=== PATIENT | male | born 1955 | race Hispanic/Latino ===

== ENCOUNTER 2016-07-08 15:42 | Inpatient (IN) ==
[2016-07-08 16:00] LABS: MANUAL DIFF NEEDED? NO
[2016-07-08 16:12] LABS: BASO% 0.7 % (0.0-0.8); EOS# 0.07 X1000 (0.0-0.7); HEMATOCRIT 42.7 % (42.0-52.0); HEMOGLOBIN 15.5 g/dL (14.0-18.0); LYMPH# 1.71 X1000 (1.2-3.4); LYMPH% 23.8 % (20.5-51.1); MCH 31.6 PG (27-31); MCHC 36.3 g/dL (33-37); MONO# 0.57 X1000 (0.11-0.59); MONO% 7.9 % (1.7-9.3); MPV 10.3 FL (7.4-10.4); NEUT% 66.6 % (42.2-75.2); PLT 157 X1000 (130-400); RBC 4.91 XMIL (4.7-6.1)
[2016-07-08 16:14] LABS: INR 1.09; PROTIME 11.5 Seconds (9.2-11.7); PTT 28.6 Seconds (22.0-36.0)
[2016-07-08 16:22] LABS: AGAP 15; ALBUMIN 4.1 g/dL (3.5-5.0); ALKALINE PHOSPHATASE 66 U/L (32-122); BUN 18 mg/dL (8-22); CHLORIDE 101 mmol/L (98-107); CK PROFILE 93 U/L (24-204); COSMO 285; GOT 18 U/L (10-34); GPT 17 U/L (10-44); POTASSIUM 3.7 mmol/L (3.5-5.1); SODIUM 138 mmol/L (136-145); TCO2 22 mmol/L (25-35); TOTAL BILIRUBIN 0.91 mg/dL (0.20-1.00); TOTAL PROTEIN 7.7 g/dL (6.3-8.3)
--- NOTE | 2016-07-08 16:24 | Diag Imaging Result Document ---
PROCEDURE NAME: CHEST-PORTABLE - 07/08/2016 PORTABLE CHEST X-RAY: COMPARISON: 06/23/2012. FINDINGS: There is suggestion of a right apical nodule or infiltrate. Heart size is normal. No pneumothorax or pleural effusion. IMPRESSION: Right apical pulmonary nodule or infiltrate, nonspecific. Followup recommended.
--- NOTE | 2016-07-08 16:25 | Diag Imaging Result Document ---
PROCEDURE NAME: HEAD W/O CONTRAST - 07/08/[address]: A CT dose reduction protocol was used. COMPARISON: 06/23/2012. FINDINGS: Stable left globe prosthesis. Stable small old lacunar infarction in the right caudate head. There is a new lacunar infarction in the left thalamus, which does have an old appearance. No intracranial mass or hemorrhage. The skull is intact. The sinuses, mastoids , and middle ears are clear. IMPRESSION: No acute disease. [facility]
[2016-07-08 17:37] LABS: URINE CULTURE NEEDED? NO; URINE MICRO REVIEW NEEDED? NO; URINE SOURCE CLEAN CATCH
[2016-07-08 17:50] LABS: BILIRUBIN URINE NEGATIVE (NEGATIVE); BLOOD URINE NEGATIVE (NEGATIVE); COLOR YELLOW; GLUCOSE URINE >1000 mg/dL (NEGATIVE); LEUKOCYTES URINE NEGATIVE (NEGATIVE); NITRITE URINE NEGATIVE (NEGATIVE); PH URINE 5.5; PROTEIN URINE NEGATIVE (NEGATIVE); SP GRAVITY URINE 1.036; TURBIDITY URINE CLEAR (CLEAR); UROBILINOGEN URINE NORMAL (NORMAL)
[2016-07-08 17:51] LABS: UR EPITHELIAL CELLS <10 /HPF (<10); URINE BACTERIA NEGATIVE /HPF; URINE RBC <10 /HPF (<10); URINE WBC <10 /HPF (<10)
--- NOTE | 2016-07-08 17:58 | PROVIDER DOCUMENTATION ---
This chart was entered by Mary Nava Scribe, acting as scribe for Sara Gimenez Jr, MD. HPI-Neurological Disorder - General Chief Complaint: Stroke-Like Symptoms Stated Complaint: STROKE LIKE SX Time Seen by Provider: 07/08/16 16:00 Source: patient Allergies/Adverse Reactions: Patient Allergies Allergy/AdvReac Type Severity Reaction Status Date / Time celecoxib [From Celebrex] Allergy Mild WATERY EYES Verified 06/01/16 09:43 Home Medications: Home Medication List Medication Instructions Recorded Confirmed Last Taken Type Atorvastatin Calcium 20 mg PO DAILY 08/04/12 07/08/16 07/08/16 08:00 History Clopidogrel [Plavix] 75 mg PO DAILY 08/04/12 07/08/16 07/08/16 08:00 History Canagliflozin [Invokana] 300 mg PO DAILY 04/18/16 07/08/16 07/08/16 08:00 History Hydrocodone/APAP 7.5 mg/325 mg 1 each PO Q6H PRN PRN #12 tablet 04/18/1606/02/16 Rx [[place]-7.5] Dulaglutide [Trulicity] 1.5 mg SQ Q7D 06/01/16 07/08/16 05/31/16 History Folic Acid 1 mg PO DAILY 06/01/16 07/08/16 07/08/16 08:00 History LISINOpril [Prinivil] 10 mg PO DAILY 06/01/16 07/08/16 07/08/16 08:00 History Tizanidine [Zanaflex] 4 mg PO Q8HR 06/01/16 07/08/16 06/02/16 History Tramadol [Ultram] 50 mg PO Q6H PRN PRN 06/01/16 07/08/16 2 Months Ago History Zolpidem [Ambien] 10 mg PO QHS 06/01/16 07/08/16 07/07/16 21:00 History Oxycodone HCl/Acetaminophen 1 - 2 each PO Q4H PRN PRN #60 06/03/16 07/08/1612/15 11:00 Rx [Percocet 5-325 mg Tablet] tablet - History of Present Illness-Neuro Nature of Presenting Problem: Pt is a 61 yom who came to the ED with a cc of stroke-like symptoms. Pt reports that he was walking out to get the mail around 1:30 and noticed that his balance was off. Pt reports when he went to call for the dogs that his speech was also slurred. Pt was worried about a stroke because he has a hx of TIA's. Severity: reports: mild Onset/Duration: reports: 1-3 hours ago Timing: reports: still present Context: reports: impaired speech Character of Altered Mental Status: reports: N/A Character of Deficits: reports: impaired speech Cognitive Baseline: alert, oriented x3 Associated Symptoms: reports: slurred speech, trouble walking Similar Symptoms Previously?: Yes Recently seen or treated by another doctor?: No Review of Systems - Adult - REVIEW OF SYSTEMS - ADULT Constitutional: denies: chills, fever Eyes: denies: decreased vision, blurred vision Cardiovascular: denies: chest pain, poor circulation Musculoskeletal: reports: other (trouble walking). denies: frequent leg cramps , joint swelling Neurological: reports: slurred speech. denies: loss of balance, paresthesia Past History - Adult - PAST MEDICAL HISTORY-ADULT Review of Records: reports: Nursing Assessment Review Major Childhood Illnesses: reports: denies history Cardiovascular: reports: HTN Respiratory: reports: denies history Gastrointestinal: reports: denies history Obstetrical/Gynecological: reports: denies history Genitourinary: reports: denies history Musculoskeletal: reports: denies history Neurological: reports: CVA Endocrine/Immune: reports: Diabetes Other Conditions: reports: denies history - PRIOR SURGERIES/PROCEDURES Surgical/Procedure History: reports: none - IMMUNIZATION STATUS Childhood Immunizations: See Nurse Assessment Flu Vaccine: See Nurse Assessment - FAMILY HISTORY Family History: reviewed, not pertinent Physical Exam- Neurological - Physical Exam-Neuro Initial Vital Signs Reviewed: Yes General Appearance: appears well, alert, no apparent distress Eye Exam: right eye: normal inspection, PERRL, EOMI, left eye: other (left eye prosthese) HENMT: normocephalic/atraumatic, moist mucous membranes Neck: non-tender, full range of motion Respiratory: chest non-tender, lungs clear Cardiovascular: normal peripheral pulses, regular rate, rhythm Abdominal Exam: normal bowel sounds, non tender Extremity: normal range of motion, 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 Exam: normal hearing, PERRL, abnormal speech Coordination/Gait: normal finger to nose, abnormal gait Neurologic: grossly normal Integumentary: normal color, normal turgor, warm/dry Psych/Mental Status: normal mood/affect, oriented x 3 - Glascow Coma Scale Best Eye Response: (4) open spontaneously Best Verbal Response: (5) oriented Best Motor Response: (6) obeys commands Total Glascow Score: 15 Progress - PLAN OF CARE/RESULTS Progress/Plan/Lab Results: Vital Signs - 8 hr 07/08/16 15:46 07/08/16 16:55 Temperature 97.9 F Pulse Rate 73 75 Respiratory Rate 18 19 Blood Pressure 176/91 160/95 O2 Sat by Pulse Oximetry 99 97 Laboratory Results - last 24 hr 07/08/16 07/08/16 07/08/16 15:50 15:50 15:50 WBC 7.19 RBC 4.91 Hgb 15.5 Hct 42.7 MCV 87.0 MCH 31.6 H MCHC 36.3 RDW Std Deviation 13.2 Plt Count 157 MPV 10.3 Immature Gran % (Auto) 0.0 Neut % (Auto) 66.6 Lymph % (Auto) 23.8 [place] % (Auto) 7.9 Eos % (Auto) 1.0 Baso % (Auto) 0.7 Immature Gran # (Auto) 0.00 Neut # (Auto) 4.79 Lymph # (Auto) 1.71 [place] # (Auto) 0.57 Eos # (Auto) 0.07 Baso # (Auto) 0.05 PT INR PTT (Actin FS) Sodium 138 Potassium 3.7 Chloride 101 Carbon Dioxide 22 L Anion Gap 15 BUN 18 Creatinine 1.0 Estimated GFR/1.73 m2 > 60 BUN/Creatinine Ratio 18 Glucose 233 H Calculated Osmolality 285 Calcium 9.0 Total Bilirubin 0.91 AST 18 ALT 17 Alkaline Phosphatase 66 Creatine Kinase 93 Troponin T Total Protein 7.7 Albumin 4.1 Globulin 3.6 Albumin/Globulin Ratio 1.1 Plasma Lactate Urine Source Urine Color Urine Turbidity Urine pH Ur Specific [place] Urine Protein Ur Glucose (Stick) Ur Ketones (Stick) Urine Blood Urine Nitrite Urine Bilirubin Urobilinogen Dipstick Urine Leukocytes Urine WBC (Auto) Urine RBC (Auto) U Epithel Cells (Auto) Urine Bacteria (Auto) Plasma/Serum Ethyl Alc 07/08/16 07/08/16 07/08/16 15:50 15:50 16:39 WBC RBC Hgb Hct MCV MCH MCHC RDW Std Deviation Plt Count MPV Immature Gran % (Auto) Neut % (Auto) Lymph % (Auto) [place] % (Auto) Eos % (Auto) Baso % (Auto) Immature Gran # (Auto) Neut # (Auto) Lymph # (Auto) [place] # (Auto) Eos # (Auto) Baso # (Auto) PT 11.5 INR 1.09 PTT (Actin FS) 28.6 Sodium Potassium Chloride Carbon Dioxide Anion Gap BUN Creatinine Estimated GFR/1.73 m2 BUN/Creatinine Ratio Glucose Calculated Osmolality Calcium Total Bilirubin AST ALT Alkaline Phosphatase Creatine Kinase Troponin T < 0.010 Total Protein Albumin Globulin Albumin/Globulin Ratio Plasma Lactate 2.7 H Urine Source Urine Color Urine Turbidity Urine pH Ur Specific [place] Urine Protein Ur Glucose (Stick) Ur Ketones (Stick) Urine Blood Urine Nitrite Urine Bilirubin Urobilinogen Dipstick Urine Leukocytes Urine WBC (Auto) Urine RBC (Auto) U Epithel Cells (Auto) Urine Bacteria (Auto) Plasma/Serum Ethyl Alc 07/08/16 17:30 WBC RBC Hgb Hct MCV MCH MCHC RDW Std Deviation Plt Count MPV Immature Gran % (Auto) Neut % (Auto) Lymph % (Auto) [place] % (Auto) Eos % (Auto) Baso % (Auto) Immature Gran # (Auto) Neut # (Auto) Lymph # (Auto) [place] # (Auto) Eos # (Auto) Baso # (Auto) PT INR PTT (Actin FS) Sodium Potassium Chloride Carbon Dioxide Anion Gap BUN Creatinine Estimated GFR/1.73 m2 BUN/Creatinine Ratio Glucose Calculated Osmolality Calcium Total Bilirubin AST ALT Alkaline Phosphatase Creatine Kinase Troponin T Total Protein Albumin Globulin Albumin/Globulin Ratio Plasma Lactate Urine Source CLEAN CATCH Urine Color YELLOW Urine Turbidity CLEAR Urine pH 5.5 Ur Specific [place] 1.036 Urine Protein NEGATIVE Ur Glucose (Stick) >1000 A Ur Ketones (Stick) NEGATIVE Urine Blood NEGATIVE Urine Nitrite NEGATIVE Urine Bilirubin NEGATIVE Urobilinogen Dipstick NORMAL Urine Leukocytes NEGATIVE Urine WBC (Auto) <10 Urine RBC (Auto) <10 U Epithel Cells (Auto) <10 Urine Bacteria (Auto) NEGATIVE Plasma/Serum Ethyl Alc Orders Category Date Time Status Cardiac Monitoring DIRECTED Care 07/08/16 15:50 Active Finger Stick Blood Sugar (ED) DIRECTED Care 07/08/16 15:50 Active Oxygen Therapy- ED Nursing DIRECTED Care 07/08/16 15:50 Active Saline Loc NOW Care 07/08/16 15:50 Active CHEST-PORTABLE [RAD] Stat Exams 07/08/16 15:50 Completed HEAD W/O CONTRAST [CT] Stat Exams 07/08/16 15:50 Completed ALCOHOL BLOOD Stat Lab 07/08/16 15:50 Completed CBC WITH ELECTRONIC DIFF [HEME] Stat Lab 07/08/16 15:50 Completed CK PROFILE [SP CHEM] Stat Lab 07/08/16 15:50 Completed COMPREHENSIVE METABOLIC PANEL [CHEM] Stat Lab 07/08/16 15:50 Completed LACTATE, PLASMA [CHEM] Stat Lab 07/08/16 16:39 Completed PROTIME WITH INR [COAG] Stat Lab 07/08/16 15:50 Completed PTT [COAG] Stat Lab 07/08/16 15:50 Completed TROPONIN T Stat Lab 07/08/16 15:50 Completed URINALYSIS W/POSS RFLX CULT-1 [URINALYSIS] Stat Lab 07/08/16 17:30 Completed URINE DRUG SCREEN Stat Lab 07/08/16 17:47 Ordered Pulse Oximetry Stat Oth 07/08/16 15:50 Active EKG [EKG] Stat Ther 07/08/16 15:50 Ordered Result Diagrams: 07/08/16 15:50 07/08/16 15:50 - EKG 1 Time of EKG reading by physician:: 16:18 EKG Read and Signed by:: Sara Gimenez Jr EKG Interpretation (*Must complete 3 of following elements*): Normal Rate: 71 Rhythm: sinus rhythm with 1st degree AV block - XRAY 1 XRAY Study: Chest Impression: Abnormal (Right Apical Pulmonary Nodule or inflitrate) - CT/MRI 1 MRI Study: Head Impression: Normal (no acute abnormality) - CONSULTS/PCP/HOSPITALIST Notification #1 *Consult/PCP/Hospitalist*: Dr. Carrasco Time Discussed: 17:52 Consult Disposition: Admit Departure - Departure Time of Disposition Decision: 17:56 DIAGNOSIS: TIA (transient ischemic attack) Qualifiers: Transient cerebral ischemia type: unspecified Qualified Code(s): G45.9 - Transient cerebral ischemic attack, unspecified Disposition: ADMITTED INPATIENT 09 Certified Medical Emergency: Emergent Condition: Good Referrals and Follow-Ups: Armando Monroe [Primary Care Provider] - - Critical Care Note This patient required my direct & personal management of CC.: No - NIH Stroke Scale Level of Consciousness: 0-Alert LOC Questions (ask month and age): 0-Answers Both Correctly LOC Commands (ask to open & close eyes;make a fist, let go): 0-Obeys Both Correctly Best Gaze (horizontal eye movement): 1-Partial Gaze Palsy (gaze is abnormal in one or both eyes) Visual (use finger movement, counting or visual threat): 0-No Visual Loss Facial Palsy (show teeth or raise eyebrows & close eyes tght: 0-Symmetrical Movement Motor Function-left arm: 0-Normal Motor Function-right arm: 0-Untestable Motor Function-left le-Normal Motor Function-right le-Normal Limb Ataxia(mcooqx-[id number], or heel to matias): 0-No Ataxia Sensory(pin prick to face,arms,trunk,legs-compare side/side): 0-No Ataxia Best Language(name item/read sentence.Ex-Down to Earth): 0-No Aphasia Dysarthria(Pt read words or say words Ex.Mama,Tip-Top,Thanks: 0-Normal Articulation Extinction and Inattention: 1-Partial Neglect NIH Total Score: 1 NIH Scale Untestable Comment: right rotator cuff surgery, in immobilizer. Modified [place] Score Criteria: 1-no significant disability despite symptoms This chart was documented by the indicated scribe, (Mary Nava Scribe) and accurately reflects the services I performed and decisions made by me, Sara Gimenez Jr, MD, as attested by the provider's signature.
[2016-07-08 18:10] LABS: UR AMPHETAMINES QUAL NONE DETECTED (NONE DETECT); UR BARBITUATES QUAL NONE DETECTED (NONE DETECT); UR BENZODIAZEPIN QUAL NONE DETECTED (NONE DETECT); UR CANNABINOIDS QUAL NONE DETECTED (NONE DETECT); UR COCAINE QUAL NONE DETECTED (NONE DETECT); UR METHADONE QUAL NONE DETECTED (NONE DETECT); UR OPIATES QUAL NONE DETECTED (NONE DETECT); UR OXYCODONE QUAL PRESUMPTIVE POSITIVE (NONE DETECT); UR PCP QUAL NONE DETECTED (NONE DETECT)
[2016-07-08 19:04] LABS: HEMOGLOBIN A1C 6.3 % (4.8-6.0)
[2016-07-08] MEDS ORDERED: NON-FORMULARY MED (Dulaglutide [Trulicity] 1.5 MG) SQ SCH (19:11)
[2016-07-08] MEDS ORDERED: ASPIRIN PO ONE (19:11)
[2016-07-08 19:28] LABS: HDL 25 mg/dL (35-55); TRIGLYCERIDES 435 mg/dL (39-160)
[2016-07-08] MEDS: AMBIEN PO SCH (21:43)
[2016-07-08] MEDS: LOVENOX SUBQ SCH (21:44)
[2016-07-08] MEDS: PERCOCET-5 PO PRN (21:44)
[2016-07-08] MEDS: ZANAFLEX PO SCH (21:44)
[2016-07-08] MEDS: HUMALOG SUBQ SCH (21:45)
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
[2016-07-09] MEDS: ZANAFLEX PO SCH ×3 (06:21→20:26)
[2016-07-09] MEDS: PRILOSEC PO SCH (06:21)
[2016-07-09] MEDS: INVOKANA PO SCH (06:21)
[2016-07-09] MEDS: HUMALOG SUBQ SCH ×3 (06:34→20:34)
[2016-07-09 07:20] LABS: MANUAL DIFF NEEDED? NO
[2016-07-09 07:24] LABS: BASO% 0.5 % (0.0-0.8); EOS% 1.6 % (0.0-10.0); HEMATOCRIT 40.5 % (42.0-52.0); HEMOGLOBIN 14.4 g/dL (14.0-18.0); LYMPH# 1.96 X1000 (1.2-3.4); LYMPH% 31.4 % (20.5-51.1); MCHC 35.6 g/dL (33-37); MCV 87.3 FL (81-99); MONO# 0.61 X1000 (0.11-0.59); MONO% 9.8 % (1.7-9.3); MPV 10.5 FL (7.4-10.4); NEUT% 56.7 % (42.2-75.2); PLT 146 X1000 (130-400); RBC 4.64 XMIL (4.7-6.1)
[2016-07-09 07:50] LABS: AGAP 9; BUN 15 mg/dL (8-22); CALCIUM 8.8 mg/dL (8.8-10.2); CHLORIDE 104 mmol/L (98-107); COSMO 276; POTASSIUM 3.6 mmol/L (3.5-5.1); SODIUM 137 mmol/L (136-145); TCO2 24 mmol/L (25-35)
[2016-07-09] MEDS ORDERED: LIPITOR PO SCH (09:00)
[2016-07-09] MEDS ORDERED: PRINIVIL PO SCH (09:00)
--- NOTE | 2016-07-09 09:26 | Diag Imaging Result Document ---
PROCEDURE NAME: MRI BRAIN W W/O CONTRAST - 07/09/2016 MRI OF THE BRAIN WITH AND WITHOUT GADOLINIUM: FINDINGS: There is no evidence of mass effect or abnormal gadolinium enhancement. There is increased T2-weighted signal intensity in the periventricular white matter, particularly adjacent to the frontal horn on the right with a few scattered punctate areas of hyperintensity most notably in the posterior left external capsule. There are some old lacunae present in the right caudate nucleus in the lateral putamen on the right and in the left thalamus. There is no evidence of restricted diffusion, bleed, or abnormal extra-axial fluid collection. IMPRESSION: Chronic microvascular changes. No evidence of acute disease.
--- NOTE | 2016-07-09 09:31 | Diag Imaging Result Document ---
PROCEDURE NAME: MRA BRAIN W/O CONTRAST - 07/08/2016 MRA OF THE BRAIN: FINDINGS: There is no evidence of aneurysm or major branch occlusion. The right vertebral artery is not well demonstrated. The basilar artery appears to derive most of its flow from the left side. There is suboptimal visualization of the distal branches of the posterior and middle cerebral arteries. IMPRESSION: No gross abnormality.
--- NOTE | 2016-07-09 09:32 | Diag Imaging Result Document ---
PROCEDURE NAME: MRA NECK W/CONT - 07/08/2016 MRA OF THE NECK: The right vertebral artery is much smaller than the left. There are multiple areas of narrowing seen in the right vertebral artery. The distal portion of the vessel between the C1 level and its confluence with the left vertebral is not demonstrated. This may be due to technical factors, however, the possibility of an atherosclerotic occlusion cannot be excluded. Both internal carotid arteries are markedly tortuous at the level of the mandibular condyles with hairpin curves. Otherwise, there is no apparent narrowing in either internal carotid artery. The common carotid arteries are normal in appearance. The portions of the subclavian arteries which are included on the study appear to be patent. The brachiocephalic on the right is normal in appearance. IMPRESSION: Possibility of atheromatous disease and stenosis in the right vertebral artery cannot be excluded. Marked tortuosity in the mid internal carotid arteries bilaterally.
[2016-07-09] MEDS: PERCOCET-5 PO PRN ×3 (09:55→20:26)
[2016-07-09] MEDS: ASPIRIN PO SCH (09:55)
[2016-07-09] MEDS: PLAVIX PO SCH (09:55)
[2016-07-09] MEDS: FOLIC ACID PO SCH (09:55)
--- NOTE | 2016-07-09 15:09 | CONSULTATION ---
DATE OF CONSULTATION: 07/09/2016 PATIENT LOCATION: Room [address]. HISTORY OF PRESENT ILLNESS: Mr. Barakat is 61 years old and there is question of stroke. History from the patient, attentive , review of records in the computer is that he did not feel well 2 days ago without anything specific. The next day, yesterday, he woke with significant mostly right-sided headache and he may have noticed a little bit of clumsiness with gait. He rested through the morning and in the early afternoon when he went to the mailbox, he noted significant unsteady gait. He did not fall. He noticed that he had a tendency to veer to the left or that his left leg seemed clumsy but he did not fall. Speech was slurred. He rested for a few more hours and was not improved. He presented to the hospital and was admitted. He reports symptoms seem a little bit worse today. Headache is improved today. He reports a past history of stroke causing right-sided weakness which resolved over a period of a few weeks to a month about 4 years ago. He has past history of hypertension, dyslipidemia, diabetes mellitus, rheumatoid arthritis. He had recent right shoulder rotator cuff repair. His home medicines include hydrocodone, oxycodone, tramadol and his urine drug screen was positive for oxycodone and negative for all other. His blood sugar was 233 initially, 120s last check. Vital signs record shows systolic blood pressure is 150s to 170s, heart rate 60s to 70s, afebrile. Initial noncontrast CT of the head showed bilateral basal ganglia lacunes. Brain MRI today with and without contrast shows usual white matter changes with old bilateral basal ganglia lacunes. Cervical MRA is unremarkable. Brain MRA shows some tortuous vessels but no definite findings. Prior to his shoulder surgery, he was taking aspirin and clopidogrel together but he stopped aspirin and resumed clopidogrel after shoulder surgery. While he was taking both of those drugs, he did not have excessive bruising or any other bleeding problems. PHYSICAL EXAMINATION: On exam now, Mr. Barakat is awake, alert, attentive, and appropriate. His voice seems a little bit weak, feeble, not significantly dysarthric. Language function is intact. Memory is good. Head and neck are unremarkable. Visual nugent are full, tested by confrontational finger counting. Left prosthetic globe is noted. There is some asymmetry around the orbits which he and report is chronic, not changed recently. There is not audi ptosis. He has equal forehead wrinkling bilaterally. The left nasolabial fold is a little bit less prominent than the right but motility is good bilaterally. Gag is intact. Tongue is midline. Palate elevates at the midline. He reports equal pinprick and light touch appreciation over the face. He has good lateral and vertical right eye movement. He has good power in the right leg. I did not test power vigorously in the right arm proximally. 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 He did rapid alternating movements well with the right hand. On the left, I can overcome the iliopsoas grading 4+/5. He did well with left hand [id number] testing. He reports diminished pinprick appreciation over the left leg and trunk, extending to approximately T4 level consistently. He has good pinprick appreciation over the left shoulder , hand, and arm. Proprioception is good at the left great toe MTP joint. I did not test his gait. He did well with [id number] testing bilaterally. He did well with left hand finger-to- nose testing. IMPRESSIONS: 1. Reported sudden onset of headache, dysarthria, unsteady gait. Clinically, there is minimal left hemiparesis and, in light of his risk factors, this would seem most likely acute ischemic right hemisphere infarction. The negative MRI is reassuring but a little bit puzzling. 2. Reported history of previous stroke consistent with the imaging studies showing basal ganglia lacune. This must have been the left brain lesion to account for reported right hemiparesis which resolved. 3. Clinical findings now of left T4 sensory level with mild left leg weakness. He has not had incontinence. There is no history of back injury. If this were myelopathy, we would expect the motor deficit to be contralateral to the sensory deficit. We might consider spine imaging later. 4. MRA of the brain with equivocal findings as reported. We might consider CT angiogram electively. I discussed with him the need for aggressive hydration in light of his hypertension and diabetes mellitus if he has to have CTA. We discussed conventional 4 vessel angiogram as another possible later step. In light of his stable course and workup findings to this point, I do not think we have to do anything urgently now. I would continue treating lipids and blood sugar aggressively, continue aspirin and clopidogrel together, continue Lovenox for DVT prophylaxis, and continue treating blood pressure very cautiously. Thanks for asking me to see Mr. Barakat. cc: MD TONYA Seth III
--- NOTE | 2016-07-09 15:59 | PROGRESS NOTE ---
DATE: 07/09/2016 SUBJECTIVE: Patient reports feeling still some weak and unsteady gait. He notes his speech is a little bit slower. Denies any other symptoms. OBJECTIVE: Vital Signs: Temperature 97.6, heart rate 68, respiratory rate 20, blood pressure 158/98, O2 saturation 98% on room air. General Examination: This is a 61-year-old, male, lying in bed, in no acute distress. HEENT: Head is normocephalic, atraumatic. Right pupil is reactive. He has a left eye prosthesis. No double vision noted. Neck: No JVD noted. No carotid bruits. No lymphadenopathy. No thyromegaly. Cardiovascular: S1, S2 heard. No murmurs, gallops, or rubs. Regular rate and rhythm. Respiratory: Clear bilaterally to auscultation. No work of breathing or using accessory muscles. Abdomen: Soft, nontender to palpation. Bowel sounds present. No organomegaly. Extremities: There is 4/5 strength in lower extremities. Right arm unable to assess for full range of motion because of trauma. Neuro: The patient alert and oriented x3. LABORATORY DATA: Reviewed. ASSESSMENT AND PLAN: 1. Cerebrovascular accident. As per signs and symptoms, patient looks to have had a cerebrovascular accident, acute ischemic right hemisphere infarction. The MRI and MRA is negative until the MRA of the brain was done, unfortunately without contrast. We probably need in the future to repeat that CT with contrast, CT angiography of the head. At this point, we are going to continue with the same management. Physical therapy has been consulted, we will follow their recommendations. As we mentioned before, the speech is a little bit better. Less slurred and gait is still unsteady, so we are going to wait for physical therapy recommendations if this patient need to go to rehab facility versus home with home health. 2. At this point, because of this apparently ischemic condition, we are going to allow permissive hypertension for the first 48-72 hours, then will resume treatment for hypertension. 3. Diabetes mellitus type 2. Hemoglobin A1c 6.3, which means it is very well-controlled diabetes. We will continue with the same management with home medications. 4. Hypertension. Blood pressure medication has been held because of stroke. We will be resumed in 72 hours from the episode. 5. Rheumatoid arthritis. We will continue home medications. 6. Valvular abnormality. Patient has been seen by Dr. Camacho from a condition that the patient is not completely sure. By now, the patient is not complaining of chest pain, so we are going to check the report from the ultrasound from 2 months ago. cc: Johnathan Nur MD
[2016-07-09] MEDS: LIPITOR PO SCH (20:25)
[2016-07-09] MEDS: LOVENOX SUBQ SCH (20:26)
[2016-07-09] MEDS: AMBIEN PO SCH (20:29)
[2016-07-10] MEDS: HUMALOG SUBQ SCH ×5 (07:01→20:20)
[2016-07-10] MEDS: ZANAFLEX PO SCH ×3 (07:02→20:19)
[2016-07-10] MEDS: INVOKANA PO SCH (07:02)
[2016-07-10] MEDS: PRILOSEC PO SCH (07:02)
[2016-07-10 07:23] LABS: MANUAL DIFF NEEDED? NO
[2016-07-10 07:25] LABS: BASO% 0.4 % (0.0-0.8); EOS# 0.14 X1000 (0.0-0.7); EOS% 1.9 % (0.0-10.0); HEMATOCRIT 43.9 % (42.0-52.0); HEMOGLOBIN 15.7 g/dL (14.0-18.0); LYMPH# 1.99 X1000 (1.2-3.4); LYMPH% 27.7 % (20.5-51.1); MCHC 35.8 g/dL (33-37); MCV 86.8 FL (81-99); MONO# 0.64 X1000 (0.11-0.59); MONO% 8.9 % (1.7-9.3); MPV 10.2 FL (7.4-10.4); NEUT% 61.1 % (42.2-75.2); PLT 146 X1000 (130-400); RBC 5.06 XMIL (4.7-6.1)
[2016-07-10 07:56] LABS: AGAP 14; BUN 17 mg/dL (8-22); CALCIUM 9.1 mg/dL (8.8-10.2); CHLORIDE 102 mmol/L (98-107); COSMO 283; POTASSIUM 3.6 mmol/L (3.5-5.1); SODIUM 140 mmol/L (136-145); TCO2 24 mmol/L (25-35)
[2016-07-10] MEDS: ASPIRIN PO SCH (08:49)
[2016-07-10] MEDS: PLAVIX PO SCH (08:49)
[2016-07-10] MEDS: PERCOCET-5 PO PRN ×3 (08:49→20:19)
[2016-07-10] MEDS: FOLIC ACID PO SCH (08:50)
[2016-07-10] MEDS: ZOFRAN IV PRN (12:09)
--- NOTE | 2016-07-10 13:10 | PROGRESS NOTE ---
DATE: 07/10/2016 SUBJECTIVE: Mr. Barakat reports some improvement in his gait and he has a sense now that the right leg is more clumsy than the left. He continues to have numbness in the left leg. He reports inability to have bowel movement over the last few days and that is not typical for him. He has not had any problems with urination. Headache continues improved. Speech is improved. OBJECTIVE: On examination, he is awake and alert. He has consistent T2-T4 sensory level on the left. Sensation is intact over the right trunk and right leg. Proprioception is good at the great toe MTP joint bilaterally. He did well on uwmh-ua-hith testing. He has good power on bedside testing in the legs. Tone is equal in the legs. Reflexes are absent at the knees and ankles bilaterally. Plantar response is silent bilaterally. He reports good pinprick appreciation equally over the hands. He has some limitation in the right arm due to shoulder discomfort following recent surgery, but I do not find definite hemiparesis. There is continuing concern for spinal lesion with possible constipation, left foreign sensory deficit with consistent upper thoracic level. We will get cervical MRI and further plans will depend on that report. Thanks for asking me to see Mr. Barakat. cc: Andrzej Cisneros III, MD
--- NOTE | 2016-07-10 14:00 | Diag Imaging Result Document ---
PROCEDURE NAME: MRI C SPINE W/WO CONTRAST - 07/10/2016 MRI OF THE CERVICAL SPINE WITHOUT AND WITH CONTRAST: Sagittal and axial images are obtained prior to and following Omniscan administration. COMPARISON: No comparison exam. FINDINGS: There are apparent mild degenerative changes at the atlantoaxial articulation with mild thickening of the transverse ligament. There is diffuse posterior C3-4 disk protrusion with small osteophytes. This produces mild spinal stenosis at C3-4 in combination with mild ligamentum flavum hypertrophy. There is mild degenerative narrowing of the bilateral C3-4 neural foramina, most prominent on the left. There is broad posterior disk bulge with small osteophytes at C4-5. This narrows the anterior subarachnoid space. There is degenerative stenosis of the left C4-5 neural foramen. There is broad shallow posterior disk bulge with small osteophytes at C5-6. This combines with some ligamentum flavum hypertrophy primarily on the left to slightly narrow the spinal canal at C5- 6. There is some degenerative narrowing of the bilateral C5-6 neural foramina, most prominent on the left. There is no spinal cord edema identified. There is no myelomalacia identified. There is no spinal cord lesion identified. There is no enhancing lesion identified. There is no subluxation seen. IMPRESSION: 1. Multilevel degenerative disease as described. There is associated mild spinal stenosis at C3- 4. There is some degenerative narrowing of the C3-4 neural foramina, most prominent on the left. 2. There is mild posterior disk bulge at C4-5. There is degenerative neural foraminal stenosis at C4-5 on the left. 3. There is slight degenerative narrowing of the spinal canal at C5-6. There is degenerative narrowing of the C5-6 neural foramina, most prominent on the left. 4. There is no spinal cord edema or other spinal cord lesion identified. There is no enhancing lesion identified. [facility]
--- NOTE | 2016-07-10 16:24 | PROGRESS NOTE ---
DATE: 07/10/2016 SUBJECTIVE: Patient reports feeling stronger today. He was working with physical therapy and he was doing much better. As per , who is at bedside, the speech is going almost back to normal. OBJECTIVE: Vital Signs: Temperature 97.6 degrees, heart rate 77, respiratory rate 15, blood pressure 158/92, O2 saturation 100% on room air. General Examination: This is a 61-year-old male, lying in bed in no acute distress. HEENT: Head is normocephalic, atraumatic. Anicteric sclerae and pale conjunctivae. Neck: No JVD noted. No carotid bruits. No lymphadenopathy. No thyromegaly. Cardiovascular: S1 and S2 heard. No murmurs, gallops, or rubs. Regular rate and rhythm. Respiratory: Clear bilaterally to auscultation. No work of breathing or use of accessory muscles. Abdomen: Soft, nontender to palpation. Bowel sounds present. No organomegaly. Extremities: Strength 4 over 5 in the lower extremities. Right arm unable to assess for full range of motion because of trauma. Neurological: Patient is alert and oriented x3. LABORATORY DATA: Reviewed. ASSESSMENT AND PLAN: 1. Cerebrovascular accident. The patient had an acute ischemic right hemisphere infarction. At this point, because of suspicion for possible myelopathy, Dr. Cisneros from Neurology has ordered an MRI of the neck, which is pending at the time of dictation. Physical Therapy has recommend him to go home with home health. The patient will need a walker, but definitely is doing much better and definitely with less slurred speech. 2. Diabetes mellitus, type 2. Hemoglobin A1c of 6.3, which means good control of diabetes. We will continue with the same management. 3. Hypertension. Blood pressure actually is considering that this patient is on lisinopril 10 mg p.o. daily, we are going to restart the medication, considering that it has been more than 72 hours from the time the stroke happened. 4. Rheumatoid arthritis. Aware. cc: Johnathan Nur MD
[2016-07-10] MEDS: LIPITOR PO SCH (20:19)
[2016-07-10] MEDS: AMBIEN PO SCH (20:20)
[2016-07-10] MEDS: LOVENOX SUBQ SCH (20:20)
[2016-07-11 07:53] LABS: AGAP 13; BUN 19 mg/dL (8-22); CALCIUM 9.4 mg/dL (8.8-10.2); CHLORIDE 103 mmol/L (98-107); COSMO 283; POTASSIUM 3.6 mmol/L (3.5-5.1); SODIUM 140 mmol/L (136-145); TCO2 24 mmol/L (25-35)
[2016-07-11 07:58] VITALS: BP 149/75
[2016-07-11] MEDS: PLAVIX PO SCH (09:55)
[2016-07-11] MEDS: ASPIRIN PO SCH (09:55)
[2016-07-11] MEDS: FOLIC ACID PO SCH (09:55)
[2016-07-11] MEDS: ZOFRAN IV PRN (11:14)
[2016-07-11] MEDS: HUMALOG SUBQ SCH ×2 (11:19→11:48)
[2016-07-11] MEDS: ZANAFLEX PO SCH (11:48)
[2016-07-11] MEDS: INVOKANA PO SCH (11:48)
[2016-07-11] MEDS: PRILOSEC PO SCH (11:49)
--- NOTE | 2016-07-12 06:29 | DISCHARGE SUMMARY ---
ADMISSION DATE: 07/08/2016 DISCHARGE DATE: 07/11/2016 DISCHARGE DIAGNOSES: 1. Acute ischemic right hemispheric infarction. 2. Diabetes mellitus type 2, well controlled. 3. Hypertension. 4. Rheumatoid arthritis. PROCEDURES: 1. MRI of the brain showed chronic microvascular changes but no evidence of acute disease. 2. MRA of the neck showed possibility of atheromatous disease and stenosis in the right vertebral artery cannot be excluded, marked tortuosity of the mid internal carotid arteries bilaterally. 3. Brain MRA showed gross abnormality. 4. Cervical spine MRI showed multilevel degenerative disease as described with mild spinal stenosis at C3-C4 but there is no is spinal cord edema or other spinal cord abnormality identified, no enhancing lesion identified too. CONSULTATIONS: Dr. Cisneros from neurology. HISTORY OF PRESENT ILLNESS AND HOSPITAL COURSE: This is a 61-year-old, male with a medical history of previous CVA in 2012 x2 which has left him with some right- sided hemiparesis, diabetes, and hypertension. He presented to the emergency department complaining that he noticed his speech was slurred and voice was soft. He called his and then he was brought to the hospital. Evaluated in the ER. They think that this patient was not a good candidate for administration of tPA so the recommendation from neurology on-call for to be admitted to the hospital. He was admitted for further evaluation and treatment. We have done several MRIs and also, because of concern for any myelopathy, a CT of the neck was ordered too which did not show any compromise of the spine. The patient was working here with physical therapy and doing fine so they recommend that this patient can go home and have physical therapy because he is strong enough and he is going to be fine. The patient is being discharged in stable condition. DISCHARGE PHYSICAL EXAMINATION: Vital Signs: Temperature 97.6 degrees, heart rate 75, respiratory rate 18, blood pressure 149/75, O2 saturation 96% on room air. General Examination: This is a 61-year-old, male, lying in bed, in no acute distress. HEENT: Head is normocephalic and atraumatic. Anicteric sclerae and pale conjunctivae. Mucous membranes moist. Neck: Supple. No JVD noted. No carotid bruits. No lymphadenopathy. No thyromegaly. Cardiovascular Examination: S1 and S2 heard. No murmurs, gallops, or rubs. Regular rate and rhythm. Respiratory Examination: Clear bilaterally to auscultation. No work of breathing or using accessory muscles. Abdomen: Soft, nontender to palpation. Bowel sounds present. No organomegaly. Extremities: No clubbing, cyanosis, or edema. Peripheral pulses present in both legs. Neurologic Examination: Motor strength in the right lower extremity not possible to evaluate because he had trauma there and lower extremity, he had motor strength of approximately 4/5. Also, it was noted that this patient has also a left hemisensory deficit also. DISCHARGE DISPOSITION: Going home. He is going to have physical therapy here in the hospital as an outpatient. FOLLOWUP: With his primary care physician in 1-2 weeks. DISCHARGE MEDICATIONS: 1. Aspirin 81 mg 1 tablet p.o. daily. 2. Plavix 75 mg 1 tablet p.o. daily. 3. Lipitor 20 mg 1 tablet p.o. daily. 4. Invokana 300 mg 1 tablet p.o. daily. 5. Trulicity 1.5 mg subcutaneous every 7 days. 6. Zanaflex 4 mg q.4 hours p.r.n. 7. Ambien 10 mg 1 tablet p.o. at bedtime. 8. Folic acid 1 tablet p.o. daily. 9. Tramadol 50 mg p.o. q.6 hours p.r.n. for pain. 10. Lisinopril 10 mg 1 tablet p.o. daily. 11. Percocet 5 mg 1 tablet p.o. every 4 hours p.r.n. to pain. DISCHARGE TIME: 35 minutes cc: Johnathan Nur MD MTDCharels
[2016-07-12] MEDS ORDERED: NON-FORMULARY MED SUBQ SCH (09:00)
== END 2016-07-11 13:10 ==
LOC: ED 15:42 → 3N 18:34
PROVIDERS: ATTEND Internal Medicine